=== PATIENT | male | born 1935 | race Caucasian/White ===

== ENCOUNTER 2021-06-22 17:31 | Inpatient (IN) | payer MEDICARE ==
[~2021-06-22] VITALS: Ht 170.2 cm; Wt 58.1 kg
--- NOTE | 2021-06-22 17:45 | NUR ---
BIB [facility] FROM HOME,C/O ABDOMINAL PAIN 5/10 AND SOB. OXYGEN SATURATION IN ROOM AIR IS AT 90%. RESPIRATION REGULAR WITH EPISODES OF GASPING FOR AIR. ABDOMEN SOFT AND NON-DISTENDED. ATTACHED TO THE MONITOT.
--- NOTE | 2021-06-22 17:46 | NUR ---
DR BONNER AT THE BEDSIDE
[2021-06-22] MEDS ORDERED: APIX5TAB PO (17:52)
[2021-06-22] MEDS ORDERED: METO25TA4 PO (17:52)
[2021-06-22] MEDS ORDERED: ATOR40TA PO (17:52)
[2021-06-22] MEDS ORDERED: LEVO137T2 PO (17:52)
[2021-06-22] MEDS ORDERED: LIDOCAINE 2% JEL UROJET 10 ML MM ONE (18:00)
[2021-06-22] MEDS ORDERED: DILTIAZEM HCL 50 MG IV IV ONE ×2 (18:00→19:00)
[2021-06-22] MEDS ORDERED: DILTIAZEM HCL 25 MG IV ONE (18:04)
[2021-06-22 18:29] LABS: BASOPHILS % (AUTO) 0.1 % (0.0-2.0); HEMATOCRIT 57 % (39-51); LYMPHOCYTES # (AUTO) 0.2 K/uL (0.8-4.8); LYMPHOCYTES % (AUTO) 2.2 % (20.0-44.0); MEAN CORPUSCULAR HGB CONC 34 g/dl (31.0-36.0); MEAN CORPUSCULAR VOLUME 93 fL (80-96); MONOCYTES # (AUTO) 0.4 K/uL (0.1-1.30); MONOCYTES % (AUTO) 4.3 % (2.0-12.0); NEUTROPHILS % (AUTO) 93.4 % (43.0-81.0); PLATELET COUNT (AUTO) 285 K/uL (150-450); RED BLOOD CELL COUNT(AUTO) 6.12 MIL/uL (4.5-6.0); WHITE BLOOD COUNT (AUTO) 9.6 K/uL (4.3-11.0)
[2021-06-22] MEDS ORDERED: ALEN70TA80 PO (18:40)
[2021-06-22 18:43] LABS: CALCIUM, SERUM 9.2 mg/dL (8.5-10.1); CARBON DIOXIDE 18 mmol/L (21-32); CHLORIDE 93 mmol/L (98-107); CREATININE 3.7 mg/dL (0.6-1.3); GLUCOSE 144 mg/dL (74-106); POTASSIUM 3.4 mmol/L (3.5-5.1); SODIUM SERUM 136 mmol/L (136-145)
--- NOTE | 2021-06-22 18:43 | NUR ---
URINE COLLECTED AND SENT TO THE LAB
[2021-06-22 18:50] LABS: UREA NITROGEN, BLOOD 112 mg/dL (7-18)
--- NOTE | 2021-06-22 18:51 | NUR ---
CARDIZEM 10 MG IV PUSH PER DR BONNER. THE ORDER IS READ BACK, VERIFIED. NOTED AND CARRIED OUT.
[2021-06-22 18:55] LABS: BILIRUBIN,DIRECT 0.5 mg/dL (0.0-0.2); BILIRUBIN,TOTAL 2.3 mg/dL (0.2-1.0)
[2021-06-22 18:56] LABS: ALANINE AMINOTRANSFERASE 23 U/L (12-78); ALKALINE PHOSPHATASE 101 U/L (46-116); ASPARTATE AMINOTRANSFERASE 23 U/L (15-37)
[2021-06-22 18:57] LABS: ALBUMIN 4.1 g/dL (3.4-5.0); LIPASE 61 U/L (73-393); TOTAL PROTEIN, SERUM 8.4 g/dL (6.4-8.2)
[2021-06-22 19:02] LABS: HEMOGLOBIN 19.2 g/dL (13.5-17.5)
[2021-06-22 19:05] LABS: BAND % (MANUAL) 22 % (0.0-5.0); LYMPHOCYTES % (MANUAL) 15 % (16-48); MONOCYTES % (MANUAL) 4 % (0-11.0); NEUTROPHILS % (MANUAL) 59 (42-76)
--- NOTE | 2021-06-22 19:13 | NUR ---
COVID ANTIGEN SWAB COLLECTED AND SENT TO LAB
--- NOTE | 2021-06-22 19:16 | NUR ---
TAKEN TO CT
[2021-06-22 19:27] LABS: BILIRUBIN,URINE NEGATIVE (NEGATIVE); COLOR,URINE YELLOW (YELLOW); LEUKOCYTE ESTERASE ,URINE NEGATIVE (NEGATIVE); NITRITE, URINE NEGATIVE (NEGATIVE); PROTEIN,URINE NEGATIVE (NEGATIVE); UGLUCOSE NEGATIVE (NEGATIVE); UROBILINOGEN,URINE 0.2 EU/dL (0.2)
--- NOTE | 2021-06-22 19:31 | NUR ---
report given to nurse Andres
[2021-06-22 19:34] LABS: BACTERIA,URINE None seen /HPF (None Seen); MUCUS,URINE Few /LPF (None Seen); RBC,URINE 0-2 /HPF (0-2); SQUAMOUS EPITHELIAL CELL,UR 0-2 /HPF (None Seen); WBC,URINE 0-2 /HPF (0-3)
--- NOTE | 2021-06-22 19:50 | NUR ---
EPIC PANEL PAGED.
[2021-06-22] MEDS ORDERED: PIPERACILLIN /TAZOBACTAM 3.375 G in IV D5W 50 ML IV ONE (20:00)
[2021-06-22] MEDS ORDERED: IV NS 0.9% 1,000 ML IV ONE (20:00)
[2021-06-22] MEDS ORDERED: PIPERACILLIN /TAZOBACTAM 3.375 G VIAL IV ONE (20:06)
--- NOTE | 2021-06-22 20:23 | NUR ---
Jairo oleary in [facility] - 06/22/21 at 2023 by GABRIEL [phone]
[2021-06-22] MEDS ORDERED: ZOLPIDEM TARTRATE 5 MG TABLET PO PRN (21:00)
[2021-06-22] MEDS ORDERED: HYDROCODONE/APAP 5/325MG TABLET PO PRN (21:00)
[2021-06-22] MEDS ORDERED: Z GUARD REMEDY 2 OZ OINT TP PRN (21:00)
[2021-06-22] MEDS ORDERED: MAG HYDROX/AL HYDROX/SIMETH 30 ML UDC PO PRN (21:00)
[2021-06-22] MEDS ORDERED: MAGNESIUM HYDROXIDE 30 ML UDC PO PRN (21:00)
[2021-06-22] MEDS ORDERED: PEG 3350/NA SULF,BICARB,CL/KCL 4,000 ML BOTTLE PO ONE (21:00)
[2021-06-22] MEDS ORDERED: ONDANSETRON HCL/PF 4 MG/2 ML VIAL IVP PRN (21:00)
[2021-06-22] MEDS ORDERED: ACETAMINOPHEN 325 MG TABLET PO PRN (21:00)
[2021-06-22] MEDS ORDERED: IV 1/2NS 1000 ML 1,000 ML IV PRN (21:00)
--- NOTE | 2021-06-22 21:19 | NUR ---
MAHAMED: BROTHER [phone]
--- NOTE | 2021-06-22 21:20 | NUR ---
MRSA SWAB COLLECTED AND SENT TO LAB. PATIENT'S BELONGINGS LIST DONE.
--- NOTE | 2021-06-22 21:25 | NUR ---
report given to Mary Jo mccracken) at 3w.
--- NOTE | 2021-06-22 22:14 | NUR ---
pt transferred to 3w per acls protocol.
[2021-06-22 22:30] VITALS: BP 121/78
--- NOTE | 2021-06-22 22:30 | NUR ---
CONTROL CLERK AUDITING NOTES PT ARRIVED TO UNIT VIA ADAM. PT A/OX4 ALERT ORIENTED NO PAIN OR DISCOMFORT VISIBLE AT THIS TIME. PT ON 2L OF OXYGEN TOLERATING WELL. IV ACCESS ON THE LAC 20G AND RAC 18G BOTH PATENT AND FLUSHING WELL. PT SKIN CHECK DONE NOTED DISCOLORATION ON BOTH KNEES AND SACRAL REDNESS PICTURES TAKEN AND PUT IN CHART. PT ORIENTED TO ROOM AND UNIT CALL LIGHT PLACED WITHIN REACH. WILL CONTINUE TO MONITOR.
--- NOTE | 2021-06-22 23:26 | NUR ---
MANAGER SAFE NOTES PT REPORTED 6/10 ON A NUMERIC PAIN SCALE PRN PAIN MEDICATION GIVEN
--- NOTE | 2021-06-22 23:30 | NUR ---
FUR SCRAPER NOTES PT SEEN BY COLLEGE PRESIDENT DOCTOR DOCTOR ORDERED CX AND STAT ABGS ORDERS NOTED AND CARRIED OUT. Addendum: 06/23/21 at 0442 by OLGA HENSON RN ALSO ORDERED TO HOLD FLUIDS FOR NOW.
[2021-06-23] VITALS: BP 124/103
[2021-06-23 00:08] LABS: CHOLESTEROL 130 mg/dL (<200); HDL CHOLESTEROL 67 mg/dL (40-60); LDL 51 mg/dL (0-99); TRIGLYCERIDES 117 mg/dL (30-150)
[2021-06-23 00:23] LABS: ABG BASE EXCESS -7.3 mmol/L; ABG OXYGEN SATURATION 97.9 % (92.0-98.5); ABG PCO2 18.3 mmHg (35.0-45.0); ABG PH 7.458 (7.350-7.450); AaDO2 95.8 mmHg; COHb 0.3 % (0.5-1.5); MetHb 0.2 % (0.0-1.5); O2Hb 97.4 % (94.0-97.0); VENT MODE, BG Nasal Cannual 3L
[2021-06-23] MEDS ORDERED: ALBUTEROL FS 2.5 MG/0.5 ML VIAL.NEB NEB PRN (00:30)
[2021-06-23] MEDS ORDERED: IPRATROPIUM NEB FS 0.5 MG/2.5 ML AMPUL.NEB NEB PRN (00:30)
--- NOTE | 2021-06-23 00:40 | NUR ---
Unable to obtain SPO2 and HR. Pt is awake and alert. No respiratory distress noted. RN aware. Addendum: 06/23/21 at 0129 by ANTONI PACE RT Amended: Links added.
--- NOTE | 2021-06-23 00:42 | NUR ---
VICE PRESIDENT OF NURSING NOTES CALLED [facility] [employer] DOCTOR TO INFORM REGARDING ABG RESULTS AND LOW K PER DOCTOR GIVE PT HIS PRN BREATHING TREATMENT AND K WILL NOT BE REPLACED AT THIS TIME. RT IN PTS ROOM AT THIS TIME GIVING BREATHING TREATMENT WILL CONTINUE TO MONITOR. Addendum: 06/23/21 at 0443 by OLGA HENSON RN PER DOCTOR OKAY TO RESTART FLUIDS AT THIS TIME. FLUIDS STARTED 1/2 NS @ 100 ML/HR FORGOT TO SCAN.
--- NOTE | 2021-06-23 00:50 | NUR ---
Unable to obtain SPO2 and HR. Pt is awake and alert. No respiratory distress noted. RN aware. Addendum: 06/23/21 at 0130 by ANTONI PACE RT Amended: Links added.
--- NOTE | 2021-06-23 01:00 | NUR ---
UNEMPLOYMENT INSURANCE DIRECTOR NOTES RECEIVED CRITICAL LAB LACTIC ACID 10.1 INFORMED ROD FINISHER DOCTOR.
--- NOTE | 2021-06-23 01:03 | NUR ---
Unable to obtain SP02. Pt is awake and alert. No SOB noted. Nurse aware. Addendum: 06/23/21 at 0105 by ANTONI PACE RT Amended: Links added.
--- NOTE | 2021-06-23 01:05 | NUR ---
Unable to obtain SP02. Pt is awake and alert. No SOB noted. Addendum: 06/23/21 at 0105 by ANTONI PACE RT Amended: Links added.
--- NOTE | 2021-06-23 01:06 | NUR ---
INTEGRATIVE MEDICINE PHYSICIAN NOTES NOTIFIED PT RT HE IS UNABLE TO GET SP02 CHECKED ON PT PT ALERT AWAKE PROVIDED WARM BLANKETS. WILL REACHED SP02 IN 10 MINS
--- NOTE | 2021-06-23 01:10 | NUR ---
CUSTOMER ENGINEER NOTES PT SP02 CHECKED PT O2 93 % ON 3 L WILL CONTINUE TO MONITOR.
--- NOTE | 2021-06-23 01:31 | NUR ---
BOTTLE SORTER NOTES PAGED PATTERN CHECKER DOCTOR REGARDING PTS LACTIC ACID RESULT AGAIN. AWAITING RESPONSE.
--- NOTE | 2021-06-23 01:35 | NUR ---
ORDER ENTRY TECHNICIAN NOTES WHEN TO THE TELE MONITOR DESK TO SPEAK WITH CHARGE NURSE BOTH CHARGE NURSE AND I NOTICED PTS HEART RATE DECREASING QUICKLY. WHEN IN TO CHECK ON THE PT NOTED PT WITH FIXED DILATED PUPILS PT NOT RESPONDING. PULSE CHECK DONE NO PULSE FOUND. CALLED FOR HELP STARTED COMPRESSIONS EMTCAME IN IN THE ROOM ASSISTED WITH COMPRESSIONS. MARY CRUZ WAS CALLED.
--- NOTE | 2021-06-23 01:40 | NUR ---
AD OPERATIONS COORDINATOR NOTES DOCTOR PAGED AGAIN.
--- NOTE | 2021-06-23 01:40 | NUR ---
rt responded to code blue page over head. pt found with out a pulse cpr in progress. ventilated via ambu bag. cpr and ventilations continued till er physician arrived. pt intubated at this time by er physician via GlideScope. ett observed passing through the cords. ett 8.0@26cm secured via ett alatorre. cpr and ventilation continued till rosc. pt transported to icu and placed on vent. settings ac 16 500 100% +0.
--- NOTE | 2021-06-23 01:48 | NUR ---
PRIMARY OPERATOR NOTES PULSE CHECK DONE PULSE OBTAINED PT INTUBATED WILL BE TRANSFERRED TO ICU
--- NOTE | 2021-06-23 01:50 | NUR ---
TRACK HOE OPERATOR NOTES PT TRANSFERRED TO ICU BY CHARGE NURSE 2 RT AND ME.GAVE BEDSIDE REPORT TO NURSE CAREY.
[2021-06-23 01:55] VITALS: BP 124/103
--- NOTE | 2021-06-23 01:55 | NUR ---
VAMP STRAP IRONER RCD PT FROM TELE S/P CARDIOPULMONARY ARREST; PT INTUBATED 8 @ 26 W/VENT SETTINGS AC 16 50 100%. PT JOSE ON MONITOR.
[2021-06-23 02:00] VITALS: BP 131/97
--- NOTE | 2021-06-23 02:00 | NUR ---
SOCIAL WORK MSW INFORMED DR KESSLER PT TEMP IS 94 NO NEW ORDERS RCD. PLACED WARM BLANKETS.
[2021-06-23] MEDS ORDERED: PROPOFOL 100 ML IV PRN (02:30)
--- NOTE | 2021-06-23 02:30 | NUR ---
BOILERHOUSE MECHANIC PT NOTED WAKING UP WHEN TRANSFERRED HOWEVER PT REMAINED JOSE AND UNABLE TO START BSWR
--- NOTE | 2021-06-23 02:40 | NUR ---
BLUE CRABBER NOTIFIED DR SHEIKH OF JOSE CARDIA AND UNABLE TO OBTAIN BP. RCD ORDER FOR ATROPIN IF HR <30 AND TO BEGIN LEVOPHED IF BP REMAINS LOW. ADMINISTERED ATROPINE.
[2021-06-23 02:45] VITALS: BP 59/45
--- NOTE | 2021-06-23 02:50 | NUR ---
HEATER FURNACE CALL PLACED TO CORE FITTER S/W PETER BODY IS RELEASED.
--- NOTE | 2021-06-23 02:55 | NUR ---
PHYSICAL EDUCATION TEACHER AT 0239 CODE PT NOTED ASYSTOLE ON MONITOR. CODE BLUE CALLED. PT NOTED WITHOUT HR OR RR CODE ENDED AT 0246. AT 0255 PT NOTED TO HAVE SPONTANEOUS RESPIRATIONS AND HR ON MONITOR AND PALPABLE.
[2021-06-23] MEDS ORDERED: ATROPINE SULFATE 1 MG/10 ML DISP.SYRIN IV ONE (03:00)
[2021-06-23] MEDS ORDERED: NOREPINEPHRINE 8MG/250ML RTU 250 ML IV ONE ×2 (03:02→05:34)
[2021-06-23] MEDS: NOREPINEPHRINE 8 MG in IV NS 0.9% 242 ML IV PRN ×2 (03:04→06:35)
[2021-06-23 03:15] VITALS: BP 38/20
--- NOTE | 2021-06-23 03:30 | NUR ---
DIRECTOR OF OCCUPATIONAL THERAPY DURING COMPRESSIONS PT VOMITED GREEN LIQUID AND ABDOMEN NOTED SOFT/DISTENDED DR HODGE WHO ATTENDED THE CODE RECOMMENDED NG LIS POST CODE; DR SHEIKH AGREED.
--- NOTE | 2021-06-23 03:50 | NUR ---
CLINICAL DOCUMENTATION DEVELOPER INFORMED DR KESSLER THAT PT HR REMAINS JOSE UNABLE TO OBTAIN BP LEVOPHED MAX AT 1 MCG/KG/MIN. NO NEW ORDERS RECEIVED.
[2021-06-23 04:15] LABS: BASOPHILS % (AUTO) 0.3 % (0.0-2.0); EOSINOPHILS % (AUTO) 0.3 % (0.0-6.0)
[2021-06-23 04:18] LABS: HEMATOCRIT 53 % (39-51); LYMPHOCYTES # (AUTO) 1.5 K/uL (0.8-4.8); LYMPHOCYTES % (AUTO) 12.1 % (20.0-44.0); MEAN CORPUSCULAR HGB CONC 30 g/dl (31.0-36.0); MEAN CORPUSCULAR VOLUME 103 fL (80-96); MONOCYTES # (AUTO) 0.8 K/uL (0.1-1.30); MONOCYTES % (AUTO) 6.3 % (2.0-12.0); NEUTROPHILS # (AUTO) 9.7 K/uL (1.8-8.9); PLATELET COUNT (AUTO) 173 K/uL (150-450); RED BLOOD CELL COUNT(AUTO) 5.13 MIL/uL (4.5-6.0)
--- NOTE | 2021-06-23 04:41 | NUR ---
SOLUTION MIXER MULTIPLE CALLS TO MARIVEL FOR CXR RESULTS
[2021-06-23 04:47] LABS: THYROID STIMULATING HORMONE 4.195 uIU/mL (0.358-3.74)
--- NOTE | 2021-06-23 04:48 | NUR ---
unable to obtain abg at this time. blood pressure unable to read Addendum: 06/23/21 at 0449 by RYAN ORTEGA Amended: Links added.
[2021-06-23] MEDS ORDERED: PHENYLEPHRINE 50 MG in IV NS 0.9% 245 ML IV PRN (05:00)
[2021-06-23] MEDS ORDERED: PHENYLEPHRINE 10 MG/ML VIAL ONE (05:02)
--- NOTE | 2021-06-23 05:05 | NUR ---
PREPRESS TECHNICIAN INFORMED DR SHEIKH THAT DESPITE BEING MAXED ON LEVOPHED NIBP IS STILL UNABLE TO READ SBP MANUAL 30; AGREED TO START AJIT AT THIS TIME. AJIT STARTED PER PROTOCOL
[2021-06-23 05:15] LABS: CALCIUM, SERUM 8.7 mg/dL (8.5-10.1); CARBON DIOXIDE 11 mmol/L (21-32); CHLORIDE 101 mmol/L (98-107); CREATININE 3.8 mg/dL (0.6-1.3); SODIUM SERUM 142 mmol/L (136-145)
[2021-06-23 05:18] LABS: GLUCOSE 35 mg/dL (74-106); MAGNESIUM 4.8 mg/dL (1.8-2.4); POTASSIUM 6.9 mmol/L (3.5-5.1)
[2021-06-23] MEDS ORDERED: DEXTROSE 50%-WATER 50 ML DISP.SYRIN IVP STA (05:18)
[2021-06-23 05:19] LABS: PHOSPHORUS 12.8 mg/dL (2.5-4.9); UREA NITROGEN, BLOOD 113 mg/dL (7-18)
--- NOTE | 2021-06-23 05:30 | NUR ---
SHIPPING CLERK PACKING RCD CALL FROM LAB GLUCOSE IS 35 RECHECKED WITH ACCU CHECK SHOWS RESULT OF 93. PLACED ORDER FOR STAT GLUCOSE.
--- NOTE | 2021-06-23 05:32 | NUR ---
FIELD HORTICULTURAL SPECIALTY GROWER RCD CALL FROM DR JAMISON RE US GALLBLADDER RESULTS. CALL PLACED TO DR SHEIKH TO INFORM HIM. RESULTS READ BY DR JAMISON FROM RADIOLOGY IMAGING Study slightly limited by bowel gas.. Gallbladder distended with sludge and stones and reported positive sonographic Ha's sign but no biliary ductal dilatation. Cholecystitis is possible.. Review of the CT study from the same day shows what I believe to be a high-grade small bowel obstruction with a high-grade right upper quadrant transition point and significantly decompressed distal small bowel loops. In addition, there are multiple foci of free air in the upper abdomen.
[2021-06-23] MEDS ORDERED: CALCIUM CHLORIDE 1,000 MG/10 ML DISP.SYRIN ONE (06:43)
--- NOTE | 2021-06-23 06:50 | NUR ---
TEACHER SELECTION SPECIALIST AT 0637 PT ASYSTOLE ON MONITOR CODE BLUE CALLED; ROSC AT 0650
--- NOTE | 2021-06-23 07:05 | NUR ---
TELEPHONE DIRECTORY DELIVERER MULTIPLE CALLS TO DR SHEIKH REGARDING GALLBLADDER US AND CRITICAL LABS; HE DID NOT RETURN CALL
--- NOTE | 2021-06-23 07:05 | NUR ---
DOT NET ARCHITECT PT PRONOUNCED AT [address] TRIPATHI AFTER FOURTH CODE BLUE NO FAMILY INFORMATION AT THIS TIME
--- NOTE | 2021-06-23 07:08 | NUR ---
DESK CLERKS SUPERVISOR BODY RELEASED [facility] [phone]
--- NOTE | 2021-06-23 07:10 | NUR ---
GEAR FINISHER MULTIPLE CALLS PLACED TO DR KESSLER TO RELAY CRITICAL LABS MD DID NOT RETUN CALL PT CODED AT 0637 AND AT 704; ER MD BEGAN TRATING ABNORMALITIES DURING CODE. POTASSIUM 6.9 GLUCOSE 35 BUN 113 PHOSPHORUS 12.8 MAGNESIUM 4.8 LACTIC ACID 20.6
--- NOTE | 2021-06-23 07:21 | NUR ---
RT CODE BLUE INITIATED TWICE. CPR DONE. ER DOCTOR CALLED TIME OF .
[2021-06-23] MEDS ORDERED: PANTOPRAZOLE 40 MG TABLET.DR PO SCH (07:30)
[2021-06-23] MEDS ORDERED: LEVOTHYROXINE SODIUM 137 MCG TABLET PO SCH (07:30)
--- NOTE | 2021-06-23 08:30 | NUR ---
PROCESS DEVELOPMENT MANAGER RCD CALL FROM BROTHER MAHAMED [phone] HE WILL WORK ON FINDING MORTUARY INFO.
[2021-06-23] MEDS ORDERED: SODIUM BICARBONATE SYR 50 MEQ/50 ML DISP.SYRIN IV ONE (08:37)
[2021-06-23] MEDS ORDERED: EPINEPHRINE (1:10,000) SYRINGE 1 MG/10 ML DISP.SYRIN IVP ONE (08:37)
[2021-06-23] MEDS ORDERED: CALCIUM CHLORIDE 1,000 MG/10 ML DISP.SYRIN IV ONE (08:37)
[2021-06-23] MEDS ORDERED: APIXABAN 5 MG TABLET PO SCH (09:00)
[2021-06-23] MEDS ORDERED: METOPROLOL SUCCINATE 25 MG TAB.SR.24H PO SCH (09:00)
[2021-06-23] MEDS ORDERED: ATORVASTATIN 40 MG TABLET PO SCH (18:00)
== END 2021-06-23 09:57 | DRG 388 ==
LOC: ER 17:38 → TELE 20:38 → ICU 06-23 01:55
PROVIDERS: ATTEND Family Medicine
PROC: 5A1935Z Respiratory Ventilation, Less than 24 Consecutive Hours (ICD-10-PCS; principal; 2021-06-23)
PROC: 0BH18EZ Insertion of Endotracheal Airway into Trachea, Via Natural or Artificial Opening Endoscopic (ICD-10-PCS; 2021-06-23)
PROC: 5A12012 Performance of Cardiac Output, Single, Manual (ICD-10-PCS; 2021-06-23)
PROC: 5A12012 Performance of Cardiac Output, Single, Manual (ICD-10-PCS; 2021-06-23)
DX: K56.600 Partial intestinal obstruction, unspecified as to cause (principal); N17.0 Acute kidney failure with tubular necrosis; E87.2 Acidosis; K80.10 Calculus of gallbladder with chronic cholecystitis without obstruction; K59.00 Constipation, unspecified; E03.9 Hypothyroidism, unspecified; N40.0 Benign prostatic hyperplasia without lower urinary tract symptoms; D75.1 Secondary polycythemia; I48.91 Unspecified atrial fibrillation; Z20.822 Contact with and (suspected) exposure to COVID-19; Z79.01 Long term (current) use of anticoagulants; E78.5 Hyperlipidemia, unspecified; I10 Essential (primary) hypertension; J43.9 Emphysema, unspecified; E80.6 Other disorders of bilirubin metabolism; K57.30 Diverticulosis of large intestine without perforation or abscess without bleeding
CPT/HCPCS: 36415; 36600; 71045-TC; 76705-TC; 80048-TC; 80061-TC; 80076-TC; 81001; 82803-TC; 82945-TC; 82962-TC; 83605-TC; 83690-TC; 83735-TC; 84100-TC; 84443-TC; 84484-TC; 85025-TC; 85730-TC; 87081-TC; 92950-TC; 94003-TC; 94799-TC; 99082-TC; C9803; G0378; J0171; J0461; J2370; J2543; J3490; J7060